=== PATIENT | female | born 1990 | race Caucasian/White ===

== ENCOUNTER 2017-03-18 22:46 | Emergency (ER) | payer SELFPAY ==
[~2017-03-18] VITALS: Ht 157.5 cm; Wt 77.3 kg
[2017-03-18 22:46] VITALS: BP 128/78
[2017-03-18] MEDS ORDERED: IBUP-1022 PO (23:23)
[2017-03-18] MEDS ORDERED: AUGM875T28 PO (23:23)
[2017-03-18] MEDS ORDERED: AUGMENTIN 875 MG TAB PO ONE (23:30)
[2017-03-18] MEDS ORDERED: IBUPROFEN 800 MG TAB PO ONE (23:30)
== END 2017-03-18 23:40 | disposition home or self-care (01) ==
LOC: M ED 22:46
DX: H66.002 Acute suppurative otitis media without spontaneous rupture of ear drum, left ear (principal)

== ENCOUNTER → 2019-02-20 | Outpatient (REF) | payer OTHER ==
[~2019-02-20] MED LIST: AUGM875T28 PO; IBUP-1022 PO
[2019-02-20 20:30] LABS: CHLAMYDIA DNA AMPLIFICATION NEGATIVE (NEGATIVE); GC DNA AMPLIFICATION NEGATIVE (NEGATIVE)
== END ==
LOC: M LAB REF 16:56
PROVIDERS: ATTEND Advanced Practice Midwife
DX: Z34.01 Encounter for supervision of normal first pregnancy, first trimester (principal); Z3A.00 Weeks of gestation of pregnancy not specified

== ENCOUNTER → 2019-02-20 | Outpatient (REF) | payer OTHER | LOC: M LAB REF 17:29 | PROVIDERS: ATTEND Advanced Practice Midwife | DX: Z12.4 Encounter for screening for malignant neoplasm of cervix (principal) ==

== ENCOUNTER → 2019-02-25 | Outpatient (CLI) | payer OTHER ==
--- NOTE | 2019-02-26 06:38 | REP ---
Clinical: Dating and viability. Technique: First trimester transabdominal ultrasound examination with color Doppler evaluation. Findings: Ultrasound examination demonstrates a single live early intrauterine . CRL of 7 cm corresponds to 13 weeks 2 days gestational age with estimated date of delivery 08/31/2019. heart rate equals 144 beats per minute. No gross abnormalities are identified. Maternal ovaries are normal in appearance and vascularity with right corpus luteum cyst noted. Impression: Single live early intrauterine at 13 weeks 2 days gestational age. Complete anatomical assessment should be performed at 19-20 weeks. Electronically Signed by Xavier Haynes MD 02/26/2019 06:29 A
== END ==
LOC: M RAD 10:18
PROVIDERS: ATTEND Nurse Practitioner Family
DX: Z32.01 Encounter for pregnancy test, result positive (principal); Z3A.13 13 weeks gestation of pregnancy

== ENCOUNTER → 2019-02-25 | Outpatient (CLI) | payer OTHER ==
[2019-02-25 14:21] LABS: BASO % 0.4 % (0.0-1.0); EOS # 0.1 10^3/uL (0.0-0.5); EOS % 0.9 % (0.0-3.0); HEMATOCRIT 37.6 % (36.0-47.0); HEMOGLOBIN 12.5 g/dl (12.0-15.5); LYMPH # 1.5 10^3/uL (1.5-5.0); LYMPH % 17.9 % (24.0-44.0); MEAN CORPUSCULAR HEMOGLOBIN 29.6 pg (27.0-33.0); MEAN CORPUSCULAR HGB CONC 33.2 g/dl (32.0-36.5); MEAN CORPUSCULAR VOLUME 88.9 fl (80.0-96.0); MONO # 0.5 10^3/uL (0.0-0.8); MONO % 5.6 % (0.0-5.0); NEUTROPHILS # 6.4 10^3/uL (1.5-8.5); NEUTROPHILS % 74.7 % (36.0-66.0); PLATELET COUNT, AUTOMATED 332 10^3/uL (150-450); RED BLOOD COUNT 4.23 10^6/uL (4.00-5.40); WHITE BLOOD COUNT 8.5 10^3/uL (4.0-10.0)
[2019-02-27 12:09] LABS: HIV 1&2 SCREEN CENTAUR NEGATIVE (NEGATIVE); RUBELLA IgG QUALITATIVE IMMUNE (IMMUNE)
== END ==
LOC: M SMT 10:53
PROVIDERS: ATTEND Advanced Practice Midwife
DX: Z34.81 Encounter for supervision of other normal pregnancy, first trimester (principal); Z3A.08 8 weeks gestation of pregnancy

== ENCOUNTER → 2019-03-21 | Outpatient (REF) | payer OTHER | LOC: M SFHCPLAZ 10:18 → M SFHCWAGY 10:18 → M SFHCPLAZ 03-22 10:17 | PROVIDERS: ATTEND Advanced Practice Midwife | DX: Z34.92 Encounter for supervision of normal pregnancy, unspecified, second trimester (principal) ==

== ENCOUNTER 2019-04-01 11:22 | Emergency (ER) | payer OTHER ==
[~2019-04-01] VITALS: Ht 157.5 cm; Wt 84.5 kg
[~2019-04-01 11:22] MED LIST changes: -NYSTOI TOP; -PERM5CRE9 TOP; -prenatal
[2019-04-01] MEDS ORDERED: prenatal (11:30)
[2019-04-01] MEDS ORDERED: PERM5CRE9 TOP (12:39)
[2019-04-01] MEDS ORDERED: NYSTOI TOP (12:39)
[2019-04-01 13:01] VITALS: BP 122/74
== END 2019-04-01 13:02 | disposition home or self-care (01) ==
LOC: M ED 11:22
DX: B86 Scabies (principal); L30.8 Other specified dermatitis

== ENCOUNTER → 2019-04-01 | Outpatient (CLI) | payer OTHER ==
[~2019-04-01] MED LIST changes: +NYSTOI TOP; +PERM5CRE9 TOP; +prenatal
[2019-04-01 14:33] LABS: ALBUMIN 3.2 GM/DL (3.2-5.2); ALT/SGPT 16 U/L (12-78); BILIRUBIN,DIRECT < 0.1 MG/DL (0.0-0.2); BILIRUBIN,TOTAL 0.5 MG/DL (0.2-1.0); TOTAL PROTEIN 6.7 GM/DL (6.4-8.2)
== END ==
LOC: M LAB 13:05
PROVIDERS: ATTEND Advanced Practice Midwife
DX: R21 Rash and other nonspecific skin eruption (principal)

== ENCOUNTER → 2019-04-25 | Outpatient (CLI) | payer OTHER ==
[~2019-04-25] MED LIST changes: +NYSTOI TOP; +PERM5CRE9 TOP; +prenatal
[2019-04-25 14:21] LABS: HEMOGLOBIN A1c 4.8 %
== END ==
LOC: M LAB 12:18
PROVIDERS: ATTEND Advanced Practice Midwife
DX: Z34.92 Encounter for supervision of normal pregnancy, unspecified, second trimester (principal)

== ENCOUNTER → 2019-06-12 | Outpatient (REF) | payer OTHER ==
[2019-06-12 13:25] LABS: HEMATOCRIT 33.5 % (36.0-47.0); HEMOGLOBIN 11.1 g/dl (12.0-15.5); MEAN CORPUSCULAR HEMOGLOBIN 29.6 pg (27.0-33.0); MEAN CORPUSCULAR HGB CONC 33.1 g/dl (32.0-36.5); MEAN CORPUSCULAR VOLUME 89.3 fl (80.0-96.0); PLATELET COUNT, AUTOMATED 356 10^3/uL (150-450); RED BLOOD COUNT 3.75 10^6/uL (4.00-5.40); WHITE BLOOD COUNT 12.9 10^3/uL (4.0-10.0)
== END ==
LOC: M PLALAB 10:21
PROVIDERS: ATTEND Advanced Practice Midwife
DX: O34.211 Maternal care for low transverse scar from previous cesarean delivery (principal); Z3A.00 Weeks of gestation of pregnancy not specified
CPT/HCPCS: 82950; 85027; 86850; 86901; J2790

== ENCOUNTER → 2019-08-01 | Outpatient (REF) | payer OTHER | LOC: M PLALAB 11:56 | PROVIDERS: ATTEND Advanced Practice Midwife | DX: O34.211 Maternal care for low transverse scar from previous cesarean delivery (principal) ==

== ENCOUNTER → 2019-08-23 | Outpatient (CLI) | payer OTHER ==
[~2019-08-23] MED LIST changes: +IBUP80TA PO; +IRON65TA2 PO; +OXYC1TAB23 PO; +PREN29TA4 PO; +TUMS500C PO
== END ==
LOC: M LABSMTC 11:18
PROVIDERS: ATTEND Anesthesiology
DX: Z01.812 Encounter for preprocedural laboratory examination (principal); Z11.59 Encounter for screening for other viral diseases

== ENCOUNTER 2019-08-26 05:19 | Inpatient (IN) | payer OTHER ==
[~2019-08-26] VITALS: Ht 157.5 cm; Wt 95.7 kg
[~2019-08-26 05:19] MED LIST changes: -IBUP80TA PO; -OXYC1TAB23 PO; -TUMS500C PO
[2019-08-26] MEDS ORDERED: BICITRA 30ML SOLN UDC As Ordered ONE (05:37)
[2019-08-26] MEDS ORDERED: ceFAZolin 2 GM/D5W 50 ML IV BAG (J0690 PER 500MG) As Ordered ONE (05:37)
[2019-08-26] MEDS ORDERED: TUMS500C PO (05:42)
[2019-08-26] MEDS ORDERED: LR 1,000 ML IV ONE (05:45)
[2019-08-26] MEDS ORDERED: BICITRA 30ML SOLN UDC PO ONE (05:45)
[2019-08-26] MEDS ORDERED: ceFAZolin SOD 2 GM in IV 1 EA IV ONE (05:45)
[2019-08-26] MEDS ORDERED: LR 1,000 ML IV SCH ×3 (05:45→09:08)
[2019-08-26 05:49] VITALS: BP 133/85
[2019-08-26 06:20] LABS: HEMATOCRIT 33.7 % (36.0-47.0); HEMOGLOBIN 11.3 g/dl (12.0-15.5); MEAN CORPUSCULAR HEMOGLOBIN 27.7 pg (27.0-33.0); MEAN CORPUSCULAR HGB CONC 33.5 g/dl (32.0-36.5); MEAN CORPUSCULAR VOLUME 82.6 fl (80.0-96.0); PLATELET COUNT, AUTOMATED 346 10^3/uL (150-450); RED BLOOD COUNT 4.08 10^6/uL (4.00-5.40); WHITE BLOOD COUNT 13.9 10^3/uL (4.0-10.0)
[2019-08-26] MEDS ORDERED: LACTATED RINGER'S 1000 ML IV STA (06:22)
[2019-08-26] MEDS ORDERED: OXYC1TAB23 PO (07:11)
[2019-08-26] MEDS ORDERED: IBUP80TA PO (07:12)
[2019-08-26] MEDS ORDERED: OXYTOCIN INJ 10 UNITS/ML VIAL (J2590) As Ordered ONE (07:17)
[2019-08-26] MEDS ORDERED: dexameTHASONE 4 MG/ML 1ML VIAL (J1100 PER 1MG) As Ordered ONE (07:18)
[2019-08-26] MEDS ORDERED: ONDANSETRON 4MG/2ML VIAL As Ordered ONE (07:18)
[2019-08-26] MEDS ORDERED: KETOROLAC 60 MG/2 ML VIAL As Ordered ONE (07:18)
[2019-08-26] MEDS ORDERED: MORPHINE PRES-FREE INJ 10 MG/10 ML VIAL (J2274) As Ordered ONE (07:19)
[2019-08-26] MEDS ORDERED: fentaNYL 100 MCG/2 ML INJECTION (J3010) As Ordered ONE (07:19)
[2019-08-26] MEDS ORDERED: diphenhydrAMINE 50MG/ML VIAL (J1200) IV PRN (07:44)
[2019-08-26] MEDS ORDERED: NALBUPHINE HCL 10 MG/ML AMP (J2300) IV PRN ×2 (07:44→09:30)
[2019-08-26] MEDS ORDERED: METOCLOPRAMIDE INJ 10MG/2ML VIAL (J2765 PER 1) IV PRN (07:44)
[2019-08-26] MEDS ORDERED: NALOXONE INJ 0.4MG/1ML VIAL (J2310 PER 1MG) IV PRN ×2 (07:44)
[2019-08-26] MEDS ORDERED: ONDANSETRON 4MG/2ML VIAL IV PRN ×3 (07:44→09:30)
[2019-08-26] MEDS ORDERED: ePHEDrine SULFATE 25 MG/5 ML(5MG/ML) SYRINGE As Ordered ONE (08:06)
[2019-08-26] MEDS ORDERED: PHENYLephrine HCL 500 MCG/5 ML (100MCG/ML) SYRINGE (J2370) As Ordered ONE (08:06)
[2019-08-26] MEDS ORDERED: OXYTOCIN DRIP 30 UNITS in IV 1 EA IV SCH (09:08)
[2019-08-26] MEDS ORDERED: MEASLES,MUMPS,RUBELLA VACCINE INJ (MMR-II) (90707) SC SCH (09:15)
[2019-08-26] MEDS ORDERED: MOM 30ML SUSPENSION UDC PO PRN (09:15)
[2019-08-26] MEDS ORDERED: PERCOCET 5MG/325MG TAB PO PRN ×2 (09:15)
[2019-08-26] MEDS ORDERED: RHOGAM 300 MCG (1500 IU) INJ (J2790) IM SCH (09:15)
--- NOTE | 2019-08-26 09:15 | ROOPDOC ---
[facility] Report Of Operation Report of Operation DATE OF PROCEDURE: 08/26/19 SURGEON: Nisa Guadarrama M.D. DRAWING KILN SUPERVISOR: Clarisa Mckeon CNM ANESTHESIA: Spinal PREOPERATIVE DIAGNOSIS: 1. History of prior section 2. Intrauterine at 39 weeks 3. Satisfied parity with undesired fertility POSTOPERATIVE DIAGNOSIS: 1. History of prior section 2. Intrauterine at 39 weeks 3. Satisfied parity with undesired fertility OPERATION PERFORMED: Repeat section with bilateral [place] tubal ligation ESTIMATED BLOOD LOSS: 700 mL URINE OUTPUT: 300 mL INTRAVENOUS FLUIDS: 2400 mL of lactated Ringer's solution PREOPERATIVE ANTIBIOTICS:. 2 g of Ancef OPERATIVE FINDINGS: Liveborn female , Apgars 9 and 9, weight 3410 or 7 lbs. 8 oz. SPECIMENS:. Bilateral segments of fallopian tubes INDICATIONS FOR PROCEDURE: 28-year-old 2, para 1 who presented at 39 weeks for repeat section. Her history significant for 1 prior section. She is also expressed. Satisfied parity, desiring permanent sterilization with bilateral tubal ligation DESCRIPTION OF PROCEDURE: After informed consent was obtained and written consent was reviewed. The patient was brought to the operating room where spinal anesthesia was placed. She was then placed in the supine position with a left lateral tilt. Ivy catheter was placed and to gravity. Patient was then prepped and draped in the normal sterile fashion. A timeout operating room was performed identifying the patient, procedure be performed as well as drug allergies. Anesthesia was tested and deemed to be adequate. Pfannenstiel skin incision was made and this was carried down to the underlying rectus fascia. The fascia was then scored and this incision was extended bilaterally. The fascia was then dissected off the underlying rectus muscle superiorly and inferiorly. The rectus muscles were then in the midline. The peritoneum is then entered. Vesicouterine peritoneum was then tented and excised and a bladder flap was created. Mobius retractor was then placed. Next, a curvilinear incision was then made in the lower uterine segment. Amniotomy was performed, productive, clear fluid. The head was brought to the level of the incision atraumatically with the aid of a Kiwi vacuum and delivered along the shoulders and corpus. The cord was clamped 2. The infant was brought over to the warmer with a good cry. Placenta was drained and delivered grossly intact. The uterus was cleared of all clots and debris and the uterine incision was then closed in 2 layers using 0 Vicryl, first in a running locking fashion followed by second layer for imbrication. Attention was then turned to a bilateral [place] tubal ligation. A window was created in the right mesosalpinx. This area was doubly ligated with 3-0 chromic and was excised with good hemostasis noted. In a similar fashion, the left fallopian tube was placed on traction. A window was created in the mesosalpinx. This area was doubly ligated with 3-0 chromic and was excised, and hemostasis was noted. The abdomen suctioned. Surgical sites reinspected and noted be hemostatic. The retractor was then removed. The anterior peritoneum was then reapproximated with 3-0 Vicryl. The rectus muscles were reapproximated 3-0 Vicryl. The fascia was then closed using 0 Vicryl in a running nonlocking fashion. The subcutaneous tissues was then irrigated and suctioned. Subcutaneous tissue was reapproximated using 3-0 Vicryl. Several subdermal stitch is placed using 3-0 Vicryl and the skin was closed with 4-0 Monocryl and subcuticular fashion. This incision was then cleaned and dried and was dressed. The patient was then taken to recovery in stable condition. All counts were correct. My surgical orderly Erica Mckeon played in an essential role during the operation. They assisted with tissue identification retraction, delivery of the , as well as wound closure. NISA GUADARRAMA MD. August 26, 2019 09:15
[2019-08-26] MEDS ORDERED: fentaNYL 100 MCG/2 ML INJECTION (J3010) IV PRN (09:30)
[2019-08-26] MEDS ORDERED: OXYTOCIN 30 UNITS IN 0.9% NaCl 500ML IV BAG (J2590) As Ordered ONE (10:03)
[2019-08-26 10:40] VITALS: BP 126/71
[2019-08-26 11:11] VITALS: BP 123/67
[2019-08-26 12:15] VITALS: BP 126/68
[2019-08-26 14:01] VITALS: BP 120/65
[2019-08-26] MEDS: KETOROLAC 30 MG/ML 1ML VIAL IV SCH ×2 (14:03→20:51)
[2019-08-26 17:34] VITALS: BP 116/64
[2019-08-26] MEDS: DOCUSATE SODIUM 100 MG CAP PO SCH (20:51)
[2019-08-27] MEDS: KETOROLAC 30 MG/ML 1ML VIAL IV SCH (02:07)
[2019-08-27 06:00] VITALS: BP 92/54
[2019-08-27 06:44] LABS: HEMATOCRIT 25.5 % (36.0-47.0); MEAN CORPUSCULAR HEMOGLOBIN 28.1 pg (27.0-33.0); MEAN CORPUSCULAR HGB CONC 33.3 g/dl (32.0-36.5); MEAN CORPUSCULAR VOLUME 84.2 fl (80.0-96.0); PLATELET COUNT, AUTOMATED 266 10^3/uL (150-450); RED BLOOD COUNT 3.03 10^6/uL (4.00-5.40); WHITE BLOOD COUNT 14.6 10^3/uL (4.0-10.0)
[2019-08-27 06:59] LABS: HEMOGLOBIN 8.5 g/dl (12.0-15.5)
[2019-08-27 10:00] VITALS: BP 110/61
[2019-08-27] MEDS: IBUPROFEN 800 MG TAB PO SCH ×2 (10:05→17:50)
[2019-08-27] MEDS: PRENATAL VITAMINS CHEWABLE TABLET PO SCH (10:05)
[2019-08-27] MEDS: DOCUSATE SODIUM 100 MG CAP PO SCH ×2 (10:05→20:19)
[2019-08-27 14:00] VITALS: BP 123/71
[2019-08-27 18:04] VITALS: BP 118/60
[2019-08-27 22:13] VITALS: BP 118/68
[2019-08-28] MEDS: IBUPROFEN 800 MG TAB PO SCH (02:25)
[2019-08-28 02:29] VITALS: BP 106/56
[2019-08-28 06:13] VITALS: BP 126/71
[2019-08-28 06:34] VITALS: BP 107/59
[2019-08-28] MEDS: DOCUSATE SODIUM 100 MG CAP PO SCH (07:56)
[2019-08-28] MEDS: PRENATAL VITAMINS CHEWABLE TABLET PO SCH (07:56)
== END 2019-08-28 11:15 | disposition home or self-care (01) | DRG 540 ==
LOC: M LDI 05:19 → M OBS 10:31
PROVIDERS: ADMIT Obstetrics & Gynecology; ATTEND Obstetrics & Gynecology
PROC: 0UB70ZZ Excision of Bilateral Fallopian Tubes, Open Approach (ICD-10-PCS; 2019-08-26)
PROC: 10D00Z1 Extraction of Products of Conception, Low, Open Approach (ICD-10-PCS; principal; 2019-08-26 07:30)
DX: O34.211 Maternal care for low transverse scar from previous cesarean delivery (principal); Z3A.39 39 weeks gestation of pregnancy; Z30.2 Encounter for sterilization; Z37.0 Single live birth

== ENCOUNTER 2020-07-10 09:07 | Emergency (ER) | payer OTHER ==
[~2020-07-10] VITALS: Ht 160 cm; Wt 81.8 kg
[~2020-07-10 09:07] MED LIST changes: -BACT800T5 PO; -COLA100C5 PO; -FLOM0.4C39 PO; -HYDR-3713 PO; -ONDA4TAB6 PO
[2020-07-10] MEDS ORDERED: ONDANSETRON 4MG/2ML VIAL IV ONE (09:55)
[2020-07-10] MEDS ORDERED: NS 1,000 ML IV ONE (10:00)
[2020-07-10] MEDS ORDERED: MORPHINE 4 MG/ML 1ML VIAL/SYRINGE (J2270) IV ONE (10:00)
[2020-07-10 10:32] LABS: BASO % 0.3 % (0.0-1.0); EOS # 0.1 10^3/uL (0.0-0.5); EOS % 0.9 % (0.0-3.0); HEMOGLOBIN 12.3 g/dl (12.0-15.5); LYMPH # 1.9 10^3/uL (1.5-5.0); LYMPH % 18.2 % (24.0-44.0); MEAN CORPUSCULAR HGB CONC 32.4 g/dl (32.0-36.5); MEAN CORPUSCULAR VOLUME 83.3 fl (80.0-96.0); MONO # 0.6 10^3/uL (0.0-0.8); MONO % 5.3 % (2.0-8.0); NEUTROPHILS % 74.9 % (36.0-66.0); PLATELET COUNT, AUTOMATED 484 10^3/uL (150-450); RED BLOOD COUNT 4.56 10^6/uL (4.00-5.40); WHITE BLOOD COUNT 10.6 10^3/uL (4.0-10.0)
[2020-07-10] MEDS ORDERED: KETOROLAC 30 MG/ML 1ML VIAL IV ONE ×2 (10:45→13:00)
[2020-07-10 11:02] LABS: BILIRUBIN,DIRECT 0.1 MG/DL (0.0-0.2); BILIRUBIN,TOTAL 0.2 MG/DL (0.2-1.0); TOTAL PROTEIN 7.2 GM/DL (6.4-8.2)
--- NOTE | 2020-07-10 12:14 | REP ---
INDICATION: R flank pain, hematuria, abd pain COMPARISON: None. TECHNIQUE: CT Scan of the abdomen and pelvis was performed without intravenous contrast. Sagittal and coronal reconstruction images performed. FINDINGS: Lung bases: Unremarkable. Liver: Grossly unremarkable. Gallbladder: Unremarkable. Spleen: Grossly unremarkable.. Adrenals: Normal. Pancreas: Grossly unremarkable.. Kidneys: There is a 6 mm calculus in the distal right ureter causing moderate right hydroureteronephrosis. No other renal or ureteral calculi are seen. There is no left hydronephrosis. Small and large bowel: Grossly unremarkable. Free fluid: None. Abdominal aorta: No aneurysm. Adenopathy: None. Appendix: Not inflamed. Osseous structures: Unremarkable. Pelvis: No mass. No bladder calculus seen. IMPRESSION: There is a 6 mm calculus in the distal right ureter causing moderate right hydroureteronephrosis. No other renal or ureteral calculi are seen. There is no left hydronephrosis. <Electronically signed by Ronak Lou > 07/10/20 [id number]
[2020-07-10] MEDS ORDERED: TAMSULOSIN 0.4 MG CAP PO ONE (13:15)
[2020-07-10] MEDS ORDERED: BACT800T5 PO (13:34)
[2020-07-10] MEDS ORDERED: FLOM0.4C39 PO (13:34)
[2020-07-10] MEDS ORDERED: COLA100C5 PO (13:34)
[2020-07-10] MEDS ORDERED: ONDA4TAB6 PO (13:34)
[2020-07-10] MEDS ORDERED: HYDR-3713 PO (13:36)
[2020-07-10 13:58] VITALS: BP 120/70
== END 2020-07-10 14:02 | disposition home or self-care (01) ==
LOC: M ED 09:07
DX: N13.2 Hydronephrosis with renal and ureteral calculous obstruction (principal); R82.71 Bacteriuria; K60.2 Anal fissure, unspecified; R19.5 Other fecal abnormalities; N23 Unspecified renal colic; R11.2 Nausea with vomiting, unspecified; Z79.899 Other long term (current) drug therapy
CPT/HCPCS: 74176; 80047; 80076; 81001; 82150; 83690; 84702; 85025; 87086; 96361; 96374; 96375; 96376; 99284; J1885; J2270; J2405

== ENCOUNTER → 2020-07-10 | Outpatient (REF) | payer OTHER ==
[~2020-07-10] MED LIST changes: +BACT800T5 PO; +COLA100C5 PO; +FLOM0.4C39 PO; +HYDR-3713 PO; +IBUP80TA PO; +ONDA4TAB6 PO; +OXYC1TAB23 PO; +TUMS500C PO
== END ==
LOC: M SFHCLERA 08:49
PROVIDERS: ATTEND Nurse Practitioner Family
DX: R10.30 Lower abdominal pain, unspecified (principal); Z53.9 Procedure and treatment not carried out, unspecified reason

== ENCOUNTER → 2020-08-26 | Outpatient (CLI) | payer OTHER ==
[~2020-08-26] MED LIST changes: +BACT800T5 PO; +COLA100C5 PO; +FLOM0.4C39 PO; +HYDR-3713 PO; +ONDA4TAB6 PO
== END ==
LOC: M LABSMTC 09:45
PROVIDERS: ATTEND Anesthesiology
DX: Z01.818 Encounter for other preprocedural examination (principal); Z11.52 Encounter for screening for COVID-19

== ENCOUNTER → 2020-08-27 | Outpatient (REF) | payer OTHER ==
[2020-08-27 13:25] LABS: APPEARANCE, URINE CLEAR (CLEAR); BACTERIA, URINE AUTO NEGATIVE (NEGATIVE); BILIRUBIN, URINE AUTO NEGATIVE (NEGATIVE); BLOOD, URINE BLOOD NEGATIVE (NEGATIVE); COLOR, URINE STRAW (YELLOW); GLUCOSE, URINE (UA) AUTO NEGATIVE (NEGATIVE); KETONE, URINE AUTO NEGATIVE (NEGATIVE); LEUKOCYTE ESTERASE, URINE AUTO NEGATIVE (NEGATIVE); NITRITE, URINE AUTO NEGATIVE (NEGATIVE); PROTEIN, URINE AUTO NEGATIVE (NEGATIVE); RBC, URINE AUTO 0 /HPF (0-3); SPECIFIC GRAVITY URINE AUTO 1.006 (1.002-1.035); SQUAMOUS EPITHELIAL CELL UR AU 1 /HPF (0-6); UROBILINOGEN, URINE AUTO 0.2 mg/dL (0.0-2.0); WBC, URINE AUTO 0 /HPF (0-3)
[2020-08-27 13:31] LABS: HEMATOCRIT 37.5 % (36.0-47.0); MEAN CORPUSCULAR HEMOGLOBIN 27.1 pg (27.0-33.0); MEAN CORPUSCULAR VOLUME 84.7 fl (80.0-96.0); PLATELET COUNT, AUTOMATED 389 10^3/uL (150-450); RED BLOOD COUNT 4.43 10^6/uL (4.00-5.40); WHITE BLOOD COUNT 6.3 10^3/uL (4.0-10.0)
[2020-08-27 13:49] LABS: INR 0.98; PROTHROMBIN TIME 13.2 SECONDS (12.5-14.3)
[2020-08-27 13:50] LABS: PARTIAL THROMBOPLASTIN TIME 32.5 SECONDS (24.2-38.5)
[2020-08-27 14:02] LABS: BLOOD UREA NITROGEN 11 MG/DL (7-18); CALCIUM LEVEL 9.3 MG/DL (8.5-10.1); CARBON DIOXIDE LEVEL 25 MEQ/L (21-32); CHLORIDE LEVEL 108 MEQ/L (98-107); CREATININE FOR GFR 0.65 MG/DL (0.55-1.30); GLOMERULAR FILTRATION RATE > 60.0 (>60); GLUCOSE, FASTING 117 MG/DL (70-100); POTASSIUM SERUM 3.8 MEQ/L (3.5-5.1); SODIUM LEVEL 139 MEQ/L (136-145)
[2020-08-27 14:05] LABS: HCG, SERUM QUALITATIVE NEGATIVE (NEGATIVE)
== END ==
LOC: M PLALAB 12:52
PROVIDERS: ATTEND Nurse Practitioner Women's Health
DX: Z01.818 Encounter for other preprocedural examination (principal); N13.2 Hydronephrosis with renal and ureteral calculous obstruction

== ENCOUNTER 2020-08-31 07:27 | Day surgery (SDC) | payer OTHER ==
[~2020-08-31] VITALS: Ht 158.8 cm; Wt 83.0 kg
[~2020-08-31 07:27] MED LIST changes: +LR 1,000 ML IV ONE; +ceFAZolin SOD 2 GM in IV 1 EA IV ONE
[2020-08-31] MEDS ORDERED: MIDAZOLAM INJ 2MG/2ML VIAL (J2250 PER 1MG) As Ordered ONE (08:11)
[2020-08-31] MEDS ORDERED: fentaNYL 100 MCG/2 ML INJECTION (J3010) As Ordered ONE (08:11)
[2020-08-31] MEDS ORDERED: ROCURONIUM BROMIDE 50 MG/5 ML VIAL As Ordered ONE (08:11)
[2020-08-31] MEDS ORDERED: propofoL 200 MG/20 ML VIAL As Ordered ONE (08:11)
[2020-08-31] MEDS ORDERED: LIDOCAINE 2% 100MG/5ML SDV (FOR ANES.) As Ordered ONE (08:11)
[2020-08-31] MEDS ORDERED: dexameTHASONE 4 MG/ML 1ML VIAL (J1100 PER 1MG) As Ordered ONE (08:12)
[2020-08-31] MEDS ORDERED: ONDANSETRON 4MG/2ML VIAL As Ordered ONE (08:12)
[2020-08-31] MEDS ORDERED: CONRAY-60 60% 50ML VIAL (Q9961) As Ordered ONE (09:10)
[2020-08-31] MEDS ORDERED: ACETAMINOPHEN 1000MG 100ML IV BTL (OFIRMEV) (J0131 PER 10MG) As Ordered ONE (09:51)
[2020-08-31] MEDS ORDERED: KETOROLAC 60MG 2ML VIAL As Ordered ONE (09:51)
[2020-08-31] MEDS ORDERED: METOCLOPRAMIDE INJ 10MG/2ML VIAL (J2765 PER 1) As Ordered ONE (09:52)
--- NOTE | 2020-08-31 10:19 | ROOPDOC ---
[facility] Report Of Operation Report of Operation DATE OF PROCEDURE: 08/31/20 PREPROCEDURE DIAGNOSES: Right ureteral calculus POSTPROCEDURE DIAGNOSES: Spontaneously passed calculus PROCEDURE: Cystoscopy, right retrograde pyelogram, ureteroscopy, ureteral stent insertion, fluoroscopy and x-ray interpretation SURGEON: Riley Phillips MD BLISTER RUST ERADICATOR: [None ANESTHESIA: Gen. ESTIMATED BLOOD LOSS: Approximately 0 mL. COMPLICATIONS: None REMARKS: Spontaneously passed calculus PROCEDURE NOTE: This is a 29-year-old female with a history of distal right ureteral calculus. She states she continues to have occasional discomfort and has not passed a stone she was ever brought to the operating room for stone extraction. DESCRIPTION OF PROCEDURE: The patient was placed on table in supine position, given general anesthesia, placed in lithotomy position, prepped with Betadine paint, draped in an aseptic manner and timeout was performed. A 22 Fijian cystoscope was inserted into the meatus and advanced under direct vision of a 30 lens to the bladder. Urethral channel was normal. The bladder mucosa was normal. The right ureteral orifices and catheterized with a 5 Fijian [place] catheter and retrograde injection of 10 mL of dilute Conray showed no stones present. 2 wires placed in the ureter A rigid ureteroscope was then exchanged for the cystoscope which was advanced over a safety wire and advanced up to the proximal ureter without encountering any stone. The scope was then removed and exchanged for a flexible ureteroscope which was advanced alongside the safety wire. There were no stones in the ureter. Each calyx in the right kidney was examined and patient was found not to have any stones present. She had 1 stones still within a papilla, but no free stones. The ureteroscope was then withdrawn under direct vision and the cystoscope was backloaded over the safety wire. A 6 Fijian double-J stent was advanced over this wire up to the renal pelvis where it was seen to curl well with fluoroscopy in the bladder and also curled well. The bladder was then drained, cystoscope was removed and the patient was awakened and sent to recovery in stable condition having tolerated procedure well. Fluoroscopy was used throughout the case and interpreted throughout the case to evaluate the patient's condition. She will be seen back in the office in 2 weeks for stent removal RILEY PHILLIPS MD August 31, 2020 10:19
[2020-08-31] MEDS ORDERED: fentaNYL 100 MCG/2 ML INJECTION (J3010) IV PRN (10:25)
[2020-08-31] MEDS ORDERED: oxyCODONE 5MG TAB PO PRN (10:25)
[2020-08-31] MEDS ORDERED: LR 1,000 ML IV SCH (10:25)
[2020-08-31] MEDS ORDERED: METOCLOPRAMIDE INJ 10MG/2ML VIAL (J2765 PER 1) IV PRN (10:25)
[2020-08-31] MEDS ORDERED: ONDANSETRON 4MG/2ML VIAL IV PRN (10:25)
[2020-08-31 10:50] VITALS: BP 110/71
[2020-08-31] MEDS ORDERED: IBUPROFEN 600MG TAB PO PRN (16:00)
== END 2020-08-31 11:35 | disposition home or self-care (01) ==
LOC: M SDC 07:27
PROVIDERS: ATTEND Urology
DX: N20.1 Calculus of ureter (principal)
CPT/HCPCS: 52332; 74420; C1769; C1894; C2617; J0131; J0690; J1100; J1885; J2250; J2405; J2765; J3010; Q9961

== ENCOUNTER → 2020-11-10 | Outpatient (CLI) | payer OTHER ==
[~2020-11-10] MED LIST changes: -LR 1,000 ML IV ONE; -ceFAZolin SOD 2 GM in IV 1 EA IV ONE
[2020-11-10 11:21] LABS: BLOOD UREA NITROGEN 15 MG/DL (7-18); CALCIUM LEVEL 8.9 MG/DL (8.5-10.1); CARBON DIOXIDE LEVEL 26 MEQ/L (21-32); CHLORIDE LEVEL 108 MEQ/L (98-107); CREATININE FOR GFR 0.68 MG/DL (0.55-1.30); FREE T4 1.07 NG/DL (0.76-1.46); GLOMERULAR FILTRATION RATE > 60.0 (>60); GLUCOSE, FASTING 85 MG/DL (70-100); SODIUM LEVEL 140 MEQ/L (136-145)
== END ==
LOC: M WUC 08:03
PROVIDERS: ATTEND Nurse Practitioner Family
DX: E66.09 Other obesity due to excess calories (principal); Z68.35 Body mass index [BMI] 35.0-35.9, adult

== ENCOUNTER → 2021-04-04 | Outpatient (REF) | LOC: M EMP 14:19 | PROVIDERS: ATTEND Family Medicine | DX: Z20.822 Contact with and (suspected) exposure to COVID-19 (principal) ==

== ENCOUNTER 2021-04-07 07:57 | Outpatient (CLI) | payer OTHER ==
[~2021-04-07] VITALS: Ht 157.5 cm; Wt 72.0 kg
[~2021-04-07 07:57] MED LIST changes: +ALBUTEROL 90 MCG/ACT 8GM HFA INHALER INH PRN; +ALBUTEROL SULFATE 2.5 MG/0.5 ML INH NEB SOLN INH PRN; +EPINEPHrine INJ 1 MG/ML 1ML AMP IM PRN; +NS 1,000 ML IV SCH; +diphenhydrAMINE 50MG/ML VIAL (J1200) IV PRN; +methylPREDNISolone 125MG 2ML VIAL IV PRN
[2021-04-07] MEDS ORDERED: ACETAMINOPHEN TAB 650MG DOSE (2X325MG) PO ONE (08:00)
[2021-04-07] MEDS ORDERED: CASIRIVIMAB/IMDEVIMAB 1,200 MG in NS 250 ML IV ONE (08:00)
[2021-04-07 08:22] VITALS: BP 112/70
[2021-04-07 08:52] VITALS: BP 107/65
[2021-04-07 09:22] VITALS: BP_SYST 114; BP_SYST 116; BP_DIAS 56; BP_DIAS 57
[2021-04-07 10:22] VITALS: BP 103/67
== END 2021-04-07 10:22 | disposition home or self-care (01) ==
LOC: M OPCLI4PR 07:57
PROVIDERS: ATTEND Nurse Practitioner Family
DX: U07.1 COVID-19 (principal)

== ENCOUNTER 2023-01-31 11:02 | Emergency (ER) | payer OTHER ==
[~2023-01-31] VITALS: Ht 157.5 cm; Wt 81.1 kg
[~2023-01-31 11:02] MED LIST changes: -ALBUTEROL 90 MCG/ACT 8GM HFA INHALER INH PRN; -ALBUTEROL SULFATE 2.5 MG/0.5 ML INH NEB SOLN INH PRN; -EPINEPHrine INJ 1 MG/ML 1ML AMP IM PRN; -NS 1,000 ML IV SCH; +NYST100085 TOP; -NYSTOI TOP; -diphenhydrAMINE 50MG/ML VIAL (J1200) IV PRN; -methylPREDNISolone 125MG 2ML VIAL IV PRN
[2023-01-31] MEDS ORDERED: PHEN-239 (11:23)
[2023-01-31] MEDS ORDERED: IBUP200C25 PO (11:23)
[2023-01-31 11:59] LABS: BASO % 0.2 % (0.0-1.0); EOS % 0.2 % (0.0-3.0); HEMATOCRIT 35.7 % (36.0-47.0); HEMOGLOBIN 12.1 g/dl (12.0-15.5); LYMPH # 0.5 10^3/uL (1.5-5.0); LYMPH % 3.9 % (24.0-44.0); MEAN CORPUSCULAR HEMOGLOBIN 28.7 pg (27.0-33.0); MEAN CORPUSCULAR HGB CONC 33.9 g/dl (32.0-36.5); MEAN CORPUSCULAR VOLUME 84.8 fl (80.0-96.0); MONO # 0.7 10^3/uL (0.0-0.8); MONO % 5.7 % (2.0-8.0); NEUTROPHILS # 11.6 10^3/uL (1.5-8.5); NEUTROPHILS % 89.8 % (36.0-66.0); PLATELET COUNT, AUTOMATED 326 10^3/uL (150-450); RED BLOOD COUNT 4.21 10^6/uL (4.00-5.40)
[2023-01-31 12:22] LABS: LIPASE 22 U/L (12-53)
[2023-01-31 12:24] LABS: ALBUMIN 3.6 G/DL (3.2-5.2); ALKALINE PHOSPHATASE 62 U/L (46-116); ALT/SGPT < 9 U/L (7.0-40); AST/SGOT 14 U/L (<34); BILIRUBIN,DIRECT 0.3 MG/DL (<0.4); BILIRUBIN,TOTAL 0.9 MG/DL (0.3-1.2); TOTAL PROTEIN 6.5 G/DL (5.7-8.2)
[2023-01-31] MEDS ORDERED: cefTRIAXone SOD 1 GM in D5W MINI-BAG PLUS 50 ML IV ONE (12:50)
[2023-01-31] MEDS ORDERED: ONDANSETRON 4MG 2ML VIAL IV ONE (12:50)
[2023-01-31] MEDS ORDERED: NS 1,000 ML IV ONE (12:50)
[2023-01-31] MEDS ORDERED: KETOROLAC 30 MG/ML 1ML VIAL IV ONE (12:50)
[2023-01-31] MEDS ORDERED: SULF1TAB23 PO (14:28)
[2023-01-31] MEDS ORDERED: ONDA4TAB6 PO (14:28)
[2023-01-31 15:16] VITALS: BP 109/58; TEMP 98.5; O2SAT 98
== END 2023-01-31 15:17 | disposition home or self-care (01) ==
LOC: M ED 11:02
DX: N30.01 Acute cystitis with hematuria (principal); G43.909 Migraine, unspecified, not intractable, without status migrainosus; Z87.442 Personal history of urinary calculi; Z79.83 Long term (current) use of bisphosphonates; Z79.1 Long term (current) use of non-steroidal anti-inflammatories (NSAID); Z79.899 Other long term (current) drug therapy; Z79.2 Long term (current) use of antibiotics
CPT/HCPCS: 74176; 80047; 80076; 81001; 83690; 84702; 85025; 87088; 87186; 96365; 96375; 99284; J0696; J1885; J2405

== ENCOUNTER → 2023-03-15 | Outpatient (CLI) | payer OTHER ==
[~2023-03-15] MED LIST changes: +IBUP200C25 PO; +PHEN-239; +SULF1TAB23 PO
[2023-03-15 13:07] LABS: BASO % 0.4 % (0.0-1.0); EOS # 0.1 10^3/uL (0.0-0.5); EOS % 1.4 % (0.0-3.0); HEMATOCRIT 38.5 % (36.0-47.0); HEMOGLOBIN 12.7 g/dl (12.0-15.5); LYMPH # 1.9 10^3/uL (1.5-5.0); LYMPH % 27.1 % (24.0-44.0); MEAN CORPUSCULAR HEMOGLOBIN 28.7 pg (27.0-33.0); MEAN CORPUSCULAR VOLUME 86.9 fl (80.0-96.0); MONO # 0.5 10^3/uL (0.0-0.8); MONO % 7.5 % (2.0-8.0); NEUTROPHILS # 4.5 10^3/uL (1.5-8.5); NEUTROPHILS % 63.2 % (36.0-66.0); PLATELET COUNT, AUTOMATED 403 10^3/uL (150-450); RED BLOOD COUNT 4.43 10^6/uL (4.00-5.40); WHITE BLOOD COUNT 7.1 10^3/uL (4.0-10.0)
[2023-03-15 13:43] LABS: ALKALINE PHOSPHATASE 67 U/L (46-116); ALT/SGPT 15 U/L (7.0-40); AST/SGOT 16 U/L (<34); BILIRUBIN,TOTAL 0.6 MG/DL (0.3-1.2); BLOOD UREA NITROGEN 9 MG/DL (9-23); CALCIUM LEVEL 9.4 MG/DL (8.5-10.1); CARBON DIOXIDE LEVEL 25 MMOL/L (20-31); CHLORIDE LEVEL 101 MMOL/L (98-107); FERRITIN 12.1 NG/ML (7.3-270.7); FOLATE > 24.00 NG/ML (>5.4); FREE T4 1.18 NG/DL (0.89-1.76); GLOMERULAR FILTRATION RATE > 60.0 (>60); GLUCOSE, FASTING 84 MG/DL (60-100); IRON (FE) 64 UG/DL (50-170); PERCENT SATURATION 18.3 % (13.2-45.0); POTASSIUM SERUM 4.2 MMOL/L (3.5-5.1); SODIUM LEVEL 136 MMOL/L (136-145); THYROID STIMULATING HORMONE 1.213 uIU/ML (0.55-4.78); TOTAL IRON BINDING CAPACITY 349 UG/DL (250-425); TOTAL PROTEIN 6.8 G/DL (5.7-8.2)
[2023-03-15 13:44] LABS: VITAMIN B12 LEVEL 508 PG/ML (211-911)
== END ==
LOC: M LAB 12:32
PROVIDERS: ATTEND Family Medicine
DX: R53.83 Other fatigue (principal); T14.8XXA Other injury of unspecified body region, initial encounter

== ENCOUNTER → 2023-04-18 | Outpatient (REF) | LOC: M EMP 07:45 | PROVIDERS: ATTEND Family Medicine | DX: Z11.52 Encounter for screening for COVID-19 (principal) ==

== ENCOUNTER → 2023-07-11 | Outpatient (REF) | payer OTHER | LOC: M SFHCWAGY 10:41 | PROVIDERS: ATTEND Advanced Practice Midwife | DX: Z12.4 Encounter for screening for malignant neoplasm of cervix (principal) ==

== ENCOUNTER → 2023-07-25 | Outpatient (CLI) | payer OTHER | LOC: M RAD 14:39 | PROVIDERS: ATTEND Advanced Practice Midwife | DX: N92.0 Excessive and frequent menstruation with regular cycle (principal); N88.8 Other specified noninflammatory disorders of cervix uteri ==

== ENCOUNTER 2023-09-19 20:54 | Emergency (ER) | payer OTHER ==
[~2023-09-19] VITALS: Ht 157.5 cm; Wt 81.5 kg
[~2023-09-19 20:54] MED LIST changes: +ONDA-282 PO; -ONDA4TAB6 PO
[2023-09-19] MEDS ORDERED: NITR100C2 PO (21:11)
[2023-09-19 22:30] LABS: BASO % 0.2 % (0.0-1.0); EOS % 0.1 % (0.0-3.0); HEMATOCRIT 34.5 % (36.0-47.0); HEMOGLOBIN 11.7 g/dl (12.0-15.5); LYMPH # 1.1 10^3/uL (1.5-5.0); MEAN CORPUSCULAR HEMOGLOBIN 28.9 pg (27.0-33.0); MEAN CORPUSCULAR HGB CONC 33.9 g/dl (32.0-36.5); MEAN CORPUSCULAR VOLUME 85.2 fl (80.0-96.0); MONO % 7.5 % (2.0-8.0); NEUTROPHILS # 11.4 10^3/uL (1.5-8.5); NEUTROPHILS % 83.8 % (36.0-66.0); PLATELET COUNT, AUTOMATED 307 10^3/uL (150-450); RED BLOOD COUNT 4.05 10^6/uL (4.00-5.40); WHITE BLOOD COUNT 13.6 10^3/uL (4.0-10.0)
[2023-09-19 23:04] LABS: BLOOD UREA NITROGEN 8 MG/DL (9-23); CALCIUM LEVEL 8.5 MG/DL (8.5-10.1); CARBON DIOXIDE LEVEL 24 MMOL/L (20-31); CHLORIDE LEVEL 107 MMOL/L (98-107); CREATININE FOR GFR 0.58 MG/DL (0.55-1.30); GLOMERULAR FILTRATION RATE > 60.0 (>60); GLUCOSE, FASTING 121 MG/DL (60-100); POTASSIUM SERUM 3.8 MMOL/L (3.5-5.1); SODIUM LEVEL 137 MMOL/L (136-145)
[2023-09-19 23:11] LABS: HCG, SERUM QUALITATIVE NEGATIVE (NEGATIVE)
[2023-09-19 23:44] VITALS: BP 112/77; TEMP 98.3; O2SAT 100
[2023-09-20] MEDS ORDERED: BACT800T5 PO (01:10)
[2023-09-20] MEDS: cefTRIAXone SOD 1GM VIAL IM ONE (01:57)
[2023-09-20] MEDS: LIDOCAINE 1% SDV 5ML VIAL DILUENT ONE (01:57)
== END 2023-09-20 02:24 | disposition home or self-care (01) ==
LOC: M ED 20:54
DX: N10 Acute pyelonephritis (principal); Z87.442 Personal history of urinary calculi; Z79.2 Long term (current) use of antibiotics; Z79.83 Long term (current) use of bisphosphonates; Z79.899 Other long term (current) drug therapy
CPT/HCPCS: 74176; 80048; 81001; 84703; 85025; 87088; 87186; 96372; 99283; J0696

== ENCOUNTER → 2024-01-01 | Outpatient (CLI) | payer BC, OTHER ==
[~2024-01-01] MED LIST changes: +NITR100C2 PO
[2024-01-01 18:27] LABS: ALBUMIN 3.7 G/DL (3.2-5.2); ALKALINE PHOSPHATASE 74 U/L (46-116); ALT/SGPT 16 U/L (7.0-40); AST/SGOT 10 U/L (<34); BILIRUBIN,TOTAL 0.2 MG/DL (0.3-1.2); BLOOD UREA NITROGEN 12 MG/DL (9-23); CALCIUM LEVEL 9.3 MG/DL (8.5-10.1); CARBON DIOXIDE LEVEL 28 MMOL/L (20-31); CHLORIDE LEVEL 108 MMOL/L (98-107); CREATININE FOR GFR 0.72 MG/DL (0.55-1.30); GLOMERULAR FILTRATION RATE > 60.0 (>60); GLUCOSE, FASTING 89 MG/DL (60-100); POTASSIUM SERUM 3.8 MMOL/L (3.5-5.1); SODIUM LEVEL 140 MMOL/L (136-145); TOTAL PROTEIN 6.8 G/DL (5.7-8.2)
== END ==
LOC: M LAB 17:35
PROVIDERS: ATTEND Family Medicine
DX: E66.9 Obesity, unspecified (principal)

== ENCOUNTER → 2024-01-02 | Outpatient (CLI) | payer BC, OTHER ==
[2024-01-02 13:38] LABS: CHOLESTEROL RISK RATIO 2.59 (<5); HDL CHOLESTEROL 68.2 MG/DL (>40); LDL CHOLESTEROL 96.2 MG/DL (<100); NON-HDL-C 108.8 MG/DL
[2024-01-02 14:05] LABS: HEMOGLOBIN A1c 5.2 % (4.0-6.0)
== END ==
LOC: M LAB 12:15
PROVIDERS: ATTEND Family Medicine
DX: E66.9 Obesity, unspecified (principal); Z68.35 Body mass index [BMI] 35.0-35.9, adult

== ENCOUNTER → 2024-05-16 | Outpatient (REF) | payer BC, OTHER ==
[2024-05-16 13:22] LABS: APPEARANCE, URINE MANUAL CLEAR (CLEAR); COLOR, URINE MANUAL YELLOW (YELLOW)
[2024-05-16 13:24] LABS: BILIRUBIN, URINE MANUAL NEGATIVE (NEGATIVE); BLOOD URINE MANUAL NEGATIVE (NEGATIVE); GLUCOSE, URINE (UA) MANUAL NEGATIVE (NEGATIVE); KETONE, URINE MANUAL NEGATIVE (NEGATIVE); LEUKOCYTE ESTERASE, URINE MAN NEGATIVE (NEGATIVE); NITRITE, URINE MANUAL NEGATIVE (NEGATIVE); PROTEIN, URINE MANUAL NEGATIVE (NEGATIVE); UROBILINOGEN, URINE MANUAL NORMAL (NORMAL)
== END ==
LOC: M SFHCLERA 11:37
PROVIDERS: ATTEND Family Medicine
DX: R35.0 Frequency of micturition (principal)

== ENCOUNTER → 2024-10-30 | Outpatient (CLI) | payer BC, MEDICAID ==
[~2024-10-30] MED LIST changes: -FLOM0.4C39 PO; -PHEN-239; +PHEN37.511; +TAMS-18 PO
[2024-10-30 12:51] LABS: BASO # 0.0 10^3/uL (0.0-0.2); BASO % 0.4 % (0.0-1.0); EOS # 0.1 10^3/uL (0.0-0.5); EOS % 1.4 % (0.0-3.0); LYMPH # 2.2 10^3/uL (1.5-5.0); LYMPH % 26.1 % (24.0-44.0); MONO # 0.6 10^3/uL (0.0-0.8); MONO % 7.4 % (2.0-8.0); NEUTROPHILS # 5.3 10^3/uL (1.5-8.5); NEUTROPHILS % 64.1 % (36.0-66.0); PLATELET COUNT, AUTOMATED 364 10^3/uL (150-450)
[2024-10-30 13:21] LABS: ALT/SGPT 19.0 U/L (7.0-40); AST/SGOT 19.0 U/L (<34); CALCIUM LEVEL 8.9 MG/DL (8.5-10.1); CARBON DIOXIDE LEVEL 24.0 MMOL/L (20-31); CHLORIDE LEVEL 106.0 MMOL/L (98-107); CHOLESTEROL LEVEL 176.0 MG/DL (<200); CHOLESTEROL RISK RATIO 2.58 (<5); CREATININE FOR GFR 1.02 MG/DL (0.55-1.30); GLOMERULAR FILTRATION RATE 75.0 (>60); LDL CHOLESTEROL 96.2 MG/DL (<100); NON-HDL-C 107.8 MG/DL; POTASSIUM SERUM 4.0 MMOL/L (3.5-5.1); SODIUM LEVEL 141.0 MMOL/L (136-145); TRIGLYCERIDES LEVEL 58.0 MG/DL (<150)
== END ==
LOC: M LAB 12:25
PROVIDERS: ATTEND Family Medicine
DX: F41.9 Anxiety disorder, unspecified (principal); Z68.36 Body mass index [BMI] 36.0-36.9, adult; E66.9 Obesity, unspecified

== ENCOUNTER → 2025-01-06 | Outpatient (REF) ==
[~2025-01-06] MED LIST changes: -IBUP-1022 PO; +IBUP600T42 PO; -PERM5CRE9 TOP; +PERM60CR2 TOP
[2025-01-06 12:25] LABS: SOFIA COVID ANTIGEN NEGATIVE (NEGATIVE)
== END ==
LOC: M EMP 11:59
PROVIDERS: ATTEND Family Medicine
DX: Z01.89 Encounter for other specified special examinations (principal)